=== PATIENT | male | born 1950 | race Caucasian/White ===

== ENCOUNTER → 2017-11-15 | Outpatient (CLI) | payer MEDICARE, BC ==
--- NOTE | 2017-11-15 09:55 | XR ---
EXAMINATION TYPE: XR chest 2V DATE OF EXAM: 11/15/2017 COMPARISON: NONE HISTORY: Cough TECHNIQUE: Frontal and lateral views of the chest are obtained. FINDINGS: There is no focal air space opacity, pleural effusion, or pneumothorax seen. The cardiac silhouette size is within normal limits. Patient is rotated. The osseous structures are intact. Thor acic spondylosis is present. There is bronchial wall thickening. IMPRESSION: Correlate for bronchitis, reactive airways disease, follow-up as indicated.
== END | disposition home or self-care (01) ==
LOC: RADXRYALE 09:38
PROVIDERS: ATTEND Family Medicine
DX: R05 Cough (principal)
CPT/HCPCS: 71046

== ENCOUNTER → 2021-10-06 | Outpatient (CLI) | payer MEDICARE ==
--- NOTE | 2021-10-06 22:44 | US ---
EXAMINATION TYPE: US carotid duplex BILAT DATE OF EXAM: 10/06/2021 COMPARISON: US CLINICAL HISTORY: R42 DIZZINESS AND GIDDINESS, G31.84 MILD COGNITIVE IMPAIRMENT. Mild cognitive impai rment EXAM MEASUREMENTS: RIGHT: Peak Systolic Velocity (PSV) cm/sec ----- Right CCA: 114.2 ----- Right ICA: 119.8 ----- Right ECA: 130.2 ICA/CCA ratio: 1.0 RIGHT: End Diastole cm/sec ----- Right CCA: 22.7 ----- Right ICA: 28.0 ----- Right ECA: 9.8 LEFT: Peak Systolic Velocity (PSV) cm/sec ----- Left CCA: 79.0 ----- Left ICA: 103.0 ----- Left ECA: 90.8 ICA/CCA ratio: 1.3 LEFT: End Diastole cm/sec ----- Left CCA: 14.5 ----- Left ICA: 26.7 ----- Left ECA: 0.0 VERTEBRALS (direction of flow): Right Vertebral: Antegrade Left Vertebral: Antegrade Rhythm: Normal Grayscale images show mild peripheral plaque right carotid bulb level. Less prominent plaque left car otid bulb. Increased peak systolic velocity right common carotid artery. No significant stenosis seen IMPRESSION: No hemodynamically significant stenosis in either internal carotid artery. Criteria for Assigning % of Stenosis / Diameter reduction (Estimation based on the indirect measurements of the internal carotid artery velocities (ICA PSV). 1. Normal (no stenosis)=ICA PSV < 125 cm/s: ratio < 2.0: ICA EDV<40 cm/s. 2. Less than 50% stenosis=ICA PSV < 125 cm/s: ratio < 2.0: ICA EDV<40 cm/s. 3. 50 to 69% stenosis=ICA PSV of 125 to 230 cm/s: ration 2.0 ? 4.0: ICA EDV 40-100 cm/s. 4. Greater than 70% stenosis to near occlusion= ICA PSV > 230 cm/s: ratio > 4.0: ICA EDV > 100 cm/s. 5. Near occlusion= ICA PSV velocities may be low or undetectable: variable ratio and ICA EDV. 6. Total occlusion=unable to detect flow.
== END | disposition home or self-care (01) ==
LOC: RADUSWWP 15:04
PROVIDERS: ATTEND Family Medicine
DX: G31.84 Mild cognitive impairment of uncertain or unknown etiology (principal); R42 Dizziness and giddiness
CPT/HCPCS: 93880

== ENCOUNTER → 2022-04-02 | Outpatient (CLI) | payer MEDICARE ==
--- NOTE | 2022-04-02 13:22 | XR ---
EXAMINATION TYPE: XR chest 2V DATE OF EXAM: 04/02/2022 COMPARISON: Chest x-ray 11/15/2017 HISTORY: Shortness of breath and cough TECHNIQUE: Frontal and lateral views of the chest are obtained. FINDINGS: Some strand-like densities are present at the right greater than left lung base. Lung volum es are decreased. There is no focal air space opacity, pleural effusion, or pneumothorax seen. Bronch ial wall thickening is again noted. The cardiac silhouette size is within normal limits. The osseou s structures are intact. There is thoracic spondylosis. There may be spinal curvature, tracheal devia tion appears more pronounced. The aorta is dense. IMPRESSION: Question some interstitial changes at the lung bases versus atelectasis, consider follow -up, CT scan as indicated, correlate for bronchitis.
== END | disposition home or self-care (01) ==
LOC: RADXRYALE 11:54
PROVIDERS: ATTEND Physician Assistant
DX: R06.02 Shortness of breath (principal)
CPT/HCPCS: 71046

== ENCOUNTER → 2022-05-04 | Outpatient (CLI) | payer MEDICARE ==
[2022-05-04 14:09] LABS: African American GFR (CKD) >90 (>60 ml/min/1.73 sqM); Blood Urea Nitrogen 15 mg/dL (9-20); Non-African American GFR(CKD) 82 (>60 ml/min/1.73 sqM)
--- NOTE | 2022-05-04 15:01 | CT ---
EXAMINATION TYPE: CT chest w con DATE OF EXAM: 05/04/2022 COMPARISON: 04/02/2022 and chest x-ray HISTORY: SOB and cough. recent pneumonia CT DLP: 364.50 mGycm Automated exposure control for dose reduction was used. TECHNIQUE: CT scan of the chest is performed with IV Contrast, patient injected with 100 mL of Isovue 300. MIP Images are created on CT scanner and reviewed. 3D reconstructed images are created on an independent workstation and reviewed. FINDINGS: LUNGS: The lungs are grossly clear, there is no concerning parenchymal mass or nodule identified. T here is no pleural effusion or pneumothorax seen. The tracheobronchial tree is patent. Minimal linea r changes at the lung bases most of scar or atelectasis. Atherosclerotic change of the aorta with no evidence of aneurysm. There is mild coronary artery vessel calcifications correlate clinically. MEDIASTINUM: There are no greater than 1 cm hilar or mediastinal lymph nodes. No pericardial effusi on is seen. Small hiatal hernia. OTHER: Hypertrophic and degenerative changes of the spine. IMPRESSION: 1. No acute intrathoracic process. Minimal subsegmental changes involving the lung bases most likely atelectasis. No evidence of pneumonia.
== END | disposition home or self-care (01) ==
LOC: RADCTMAIN 13:28
PROVIDERS: ATTEND Family Medicine
DX: J98.4 Other disorders of lung (principal); R06.02 Shortness of breath
CPT/HCPCS: 82565; 84520; 71260; 36415; Q9967